=== PATIENT | female | born 1955 | race Caucasian/White ===

== ENCOUNTER 2025-02-12 15:02 | Emergency (ER) | payer MEDICARE, SELFPAY ==
[2025-02-12 15:09] VITALS: BP 182/102
[2025-02-12 15:48] LABS: Hematocrit 45.1 % (37.0-47.0); Hemoglobin 15.1 g/dL (12.0-16.0); Mean Corp Hgb Conc. 33.5 g/dL (33.0-37.0); Mean Corpuscular Volume 90.4 fL (81.0-99.0); Nucleated Red Blood Cells % 0 %; Platelet Count 391 10^3/uL (130-400); Red Cell Dist. Width 12.8 % (11.5-14.5)
[2025-02-12 16:04] LABS: ALT (SGPT) 15 U/L (0-35); AST (SGOT) 20 U/L (14-36); Albumin 4.6 g/dl (3.5-5.0); Alkaline Phosphatase 108 U/L (38-126); Blood Urea Nitrogen 12 mg/dl (7-17); Calcium 9.9 mg/dl (8.4-10.2); Carbon Dioxide 26 mmol/L (22-30); Chloride 106 mmol/L (98-107); Glucose 112 mg/dl (70-99); Lipase 106 U/L (23-300); Potassium 4.0 mmol/L (3.5-5.1); Sodium 140 mmol/L (135-145); Total Protein 8.0 g/dl (6.3-8.2); eGFR > 60.00
[2025-02-12 16:18] LABS: Urine Character Clear (Clear)
[2025-02-12 17:03] LABS: Urine Red Blood Cell 0-2 /HPF (0-2); Urine Squamous Cell >30 /LPF (Few)
--- NOTE | 2025-02-12 17:45 | ED.GENMED ---
History of Present Illness
General
Chief Complaint: Abdominal Pain
Source: patient
Time Seen by Provider: 02/12/25 17:33
History of Present Illness
History of Present Illness:
69-year-old female presents emergency department with complaints of left lower quadrant pain that began a few days ago, Sunday, and continues. The pain is constant, and worse with certain positions such as turning when it feels 'sharp'. It is
nonradiating and is not associated with nausea or vomiting. She did note that she had an episode of diarrhea yesterday and she does have mild to moderate anorexia. She denies fever but did note chills. She denies chest pain, dyspnea, back or
flank pain, urinary symptoms, vaginal bleeding or discharge.
Past History
Past History
ED Past Medical History: Other (Hypertension, fibromyalgia)
Social History
Tobacco: Smoker
Alcohol: None
Drug: None
Living: alone
Phy Exam
Physical Exam
Physical Exam:
GENERAL: Alert , in no apparent distress
EYE: pupils equal and reactive
NECK: Supple, no significant adenopathy.
ENT: o/p clr, mm slightly dry
CARDIAC: Regular rate and rhythm .
LUNGS: Clear breath sounds bilaterally, no acute respiratory distress, no wheezes/rales/rhonchi
ABDOMEN: Soft, moderate left mid and left lower quadrant tenderness, no r/g, no cvat
NEUROLOGICAL: Alert and oriented, no focal neuro deficits
SKIN: Warm and dry, skin intact.
MUSCULOSKELETAL: No edema, well perfused.
PSYCH: Normal and appropriate interaction.
Course
Orders/Labs/Results
Orders:
Orders
02/12/25 15:16
Electrocardiogram (*1) Urgent
Reason for Study: Abdominal Pain
EKG- Treatment ONCE
02/12/25 15:24
Urinalysis Reflex To Culture Urgent
Date Specimen was Collected: 02/12/25
Time Specimen was Collected: 15:16
Urine Microscopic Reflex Cult Urgent
Urine Culture Urgent
JOEY Source: U
Specimen Description:
Date Specimen was Collected: 02/12/25
Time Specimen was Collected: 15:16
02/12/25 15:28
Complete Blood Count/With Diff Urgent
Comprehensive Metabolic Panel Urgent
Lipase Urgent
02/12/25 17:45
CT Abd/Pel (IV only)-DH only Urgent
Comment:
Reason For Exam: llq pain
0.9% Sodium Chloride 1000 ml [Nss] 1,000 ml IV BOLUS
Ketorolac [Toradol] 15 mg IV NOW STA
02/12/25 20:20
Amoxicillin 875 mg/Clav 125 mg [Augmentin 875 mg/125 mg] 1 tablet PO NOW STA
Abnormal Lab Results
02/12/25 02/12/25
15:24 15:28
WBC 13.1 H 10^3/uL
(4.8-10.8)
Abs Immat Gran (auto) 0.1 H 10^3/uL
(0-0.05)
Absolute Neuts (auto) 7.4 H 10^3/uL
(1.4-6.5)
Absolute Lymphs (auto) 3.9 H 10^3/uL
(1.2-3.4)
Absolute Monos (auto) 0.9 H 10^3/uL
(0.1-0.6)
Absolute Eos (auto) 0.8 H 10^3/uL
(0-0.7)
Glucose 112 H mg/dl
(70-99)
Ur Occult Blood Reflex 1+ A
(Negative)
Leukocyte Esterase Rfl 1+ A
(Negative)
Urine Bacteria (Reflex) Few A
(Negative)
02/12/25 15:28
02/12/25 15:28
Vital Signs
Initial and Last Documented VS:
Initial Vital Signs
Temp Pulse Resp BP Pulse Ox
97.9 F 72 16 182/102 99
02/12/25 15:09 02/12/25 15:09 02/12/25 15:09 02/12/25 15:09 02/12/25 15:09
Last Documented Vital Signs
Temp Pulse Resp BP Pulse Ox
97.9 F 63 18 184/91 99
02/12/25 15:09 02/12/25 19:28 02/12/25 19:28 02/12/25 19:28 02/12/25 19:28
*Pulse Oximetry
SaO2: 99
Oxygen Mode of Delivery: Room air
Patient hypoxic: no
*Critical Care Note
Total Time (30-74mins, 75-104mins- exclusive of procedures): Not Applicable
Update Note
Update Note:
Patient presents to the Emergency Department with ____abdominal pain
Number and Complexity of Problems Addressed at the Encounter
� Chronic conditions affecting care:
� Acute Exacerbation and/or Progression of Chronic Illness:
� Differential Diagnosis includes: But not limited to diverticulitis, kidney stone, bowel obstruction, appendicitis, etc. etc.
Amount and/or Complexity of Data to be Reviewed and Analyzed
� I performed an independent evaluation of and my interpretation is:
EKG:
CT:Suspect mild acute uncomplicated left-sided colitis, likely of infectious/inflammatory etiology.
Xrays:
Laboratory Studies: Mild leukocytosis otherwise generally unremarkable
Other:
� Review of other/old records reveals:
� Clinical information was obtained by an independent historian:
� Prescriptions/Medications Considered but not given:
� Further testing considered but not performed:
Risk of Complications and/or Morbidity or Mortality of Patient Management
� Social determinants of health affecting care:
� Discussion with other providers (PCP, Hospitalists, Consultants, etc):
� Escalation of care including admission/observation vs risk of discharge considered: Multiple reassessments, patient resting comfortably, no nausea vomiting or diarrhea here. No diaphoresis, abdomen remains soft with now mild
tenderness that is well-controlled. Discussed with patient her CAT scan report and recommended antibiotics and close follow-up. Discussed with her importance of follow-up and reasons return to the ER.
Case discussed with SILVIA Mendes at [facility]. She is aware of findings here, plan for discharge, outpatient antibiotics, observation, and close follow-up. I did print out her CAT scan report for follow-up. Cinthya will assure patient
is able to get her prescription filled.
ED Attending Note
-
Portions of this chart may have been created with voice recognition software.� Occasional wrong word or��sound alike� substitutions may have occurred due to the inherent limitations of voice recognition software.
Discharge Plan
Departure
Patient Disposition: Home (Routine Discharge)
Date of Disposition: 02/12/25
Time of Disposition: 20:11
Patient with high blood pressure during this ER visit?: Yes
Condition: Good
Discharge Problem:
Colitis
Instructions: Colitis (DC), BLOOD PRESSURE
Prescriptions:
New
amoxicillin-pot clavulanate 875-125 mg tablet
1 tab PO BID Qty: 14 0RF
No Action
amoxicillin 500 mg capsule
500 mg PO TID Qty: 21 0RF
Referrals:
UNKNOWN - PT DOES,NOT KNOW [Family Provider]
Activity Restrictions/Additional Instructions:
PLEASE FOLLOW-UP WITH YOUR DOCTOR IN THE NEXT 1 TO 2 DAYS. IF YOU DEVELOP FEVER, INCREASING NEW OR PERSISTENT PAIN, ANY VOMITING, REPEATED EPISODES OF DIARRHEA, BLEEDING, CHEST PAIN, SHORTNESS OF BREATH, DIZZINESS, OR OTHER WORRISOME SIGNS, PLEASE
RETURN TO THE ER IMMEDIATELY!
Interventions
Interventions:
*Risk Screen - Suicide Last Done: 02/12/25 15:09
*Neglect/Abuse Screening Last Done: 02/12/25 15:09
*ED COVID-19 Vaccine History Last Done: 02/12/25 17:41
*ED Influenza Vaccine History Last Done: 02/12/25 17:41
SZ-Vpbwtf-Ohjilovmgr Assessment Last Done: 02/12/25 19:30
Discharge Date and Time
Print Language: [place]
[2025-02-12] MEDS: NSS 1000 IV (18:51)
[2025-02-12] MEDS: TORADOL 15 MG IV (18:51)
[2025-02-12 19:28] VITALS: BP 184/91
[2025-02-12] MEDS: AUGMENTIN 875 MG/125 MG 1 TABLET PO (20:26)
== END 2025-02-12 20:38 | disposition home or self-care (01) ==
LOC: EMR 15:02
PROVIDERS: EMERGENCY PHYSICIAN Emergency Medicine
DX: K52.9 Noninfective gastroenteritis and colitis, unspecified (principal); I10 Essential (primary) hypertension; M79.7 Fibromyalgia; F17.200 Nicotine dependence, unspecified, uncomplicated
CPT/HCPCS: 96374; 96361; 99284; 74177; 80053; 81003; 81015; 83690; 85025; 87086; 93005; Q9967